=== PATIENT | male | born 1970 | race Caucasian/White ===

== ENCOUNTER 2020-04-09 00:46 | Outpatient (CLI) | payer OTHER, SELFPAY ==
[2020-04-09 18:19] LABS: SARS-CoV-2 RNA PCR Negative
== END 2020-04-09 00:47 | disposition home or self-care (01) ==
LOC: ANHCOVIDDT 00:46
PROVIDERS: PCP Family Medicine; Visit Provider Internal Medicine Gastroenterology
DX: Z01.812 Encounter for preprocedural laboratory examination (principal); Z20.828 Contact with and (suspected) exposure to other viral communicable diseases
CPT/HCPCS: 87635; C9803; U0003

== ENCOUNTER 2020-04-11 02:04 | Day surgery (SDC) | payer OTHER, SELFPAY ==
[2020-03-28 14:35] VITALS: BMI 32.5
[2020-04-11 08:45] VITALS: BP 140/91; PULSE 82; RESP 18; TEMP 36.6; O2SAT 99; BMI 31.6
[2020-04-11] MEDS: LACTATED RINGERS 1,000 ML 150 ML IV CONT (08:55)
--- NOTE | 2020-04-11 09:12 | WPDANESEPPF ---
Anes - Initial Pre Proc Eval Procedure: Operation Date: 04/11/20 09:00 Proposed Procedures p Screening Colonoscopy - Yasir Gonzalez MD Date/Time: 04/11/20 09:12 Surgeon: Yasir Gonzalez MD Pre Op Diagnosis: neoplasm screening Patient Data Age: 49 Gender: M Height: 6 ft Weight: 105.7 kg Last Vital Signs Temp 97.8 F 04/11/20 08:45 Pulse 82 04/11/20 08:45 Resp 18 04/11/20 08:45 BP 140/91 H 04/11/20 08:45 Pulse Ox 99 04/11/20 08:45 Allergies Allergy/AdvReac Type Severity Reaction Status Date / Time Penicillins Allergy Intermediate Hives Verified 04/11/20 08:43 lisinopril Allergy Mild cough Verified 04/11/20 08:43 Home Medications Medication Instructions Recorded Confirmed Type amlodipine 10 mg tablet 10 mg PO DAILY #30 tablet 03/10/20 04/11/20 Rx irbesartan 300 1 tablet PO DAILY #30 tablet 03/10/20 04/11/20 Rx mg-hydrochlorothiazide 12.5 mg tablet rosuvastatin 10 mg tablet 10 mg PO DAILY #30 tablet 03/10/20 04/11/20 Rx ibuprofen [Advil] 200 mg PO Q6H PRN 03/28/20 04/11/20 History peg 3350-electrolytes 236 240 ml PO Q10M #4000 ml 04/07/20 Rx gram-22.74 gram-6.74 gram-5.86 gram solution Patient hx anesthesia problems: none Family hx anesthesia problems: none PMFSH Past Medical History Medical History (Updated 02/11/20 @ 13:01 by Tesha Robison MD) Acquired polycythemia Adverse reaction to LULY inhibitor drug Benign essential HTN Continuous tobacco abuse Hyperlipidemia Family History Family History (Updated 10/03/18 @ 21:22 by DOCTOR UNKNOWN) Father Hypertension Family history of cardiovascular disease Patient's father is in good health Grandparent Malignant neoplasm of prostate Family history of heart disease in male family member before age 55 Mother Patient's mother is in good health Sibling Patient's sister is in good health Social History Social History (Updated 03/10/20 @ 15:55 by Bekah Del Valle) Smoking packs per day: 1 Smoking cigarettes per day: 20.0 Years smoked: 30 Smoking pack-years: 30.00 Smoking status: Current every day smoker Tobacco type: cigarettes Second hand tobacco smoke exposure: Yes Alcohol intake: never Substance use: never Substance use type: does not use Gender identity (if verbalized by the patient): Male Anes - Eval Final PreProcedure Day of Procedure 04/11/20 09:12 Patient weight: overweight Heart: regular rate and rhythm Lungs: clear to auscultation Airway: Mallampati scale class II Neurological: alert and oriented Last oral intake: >/= 8 hours ASA classification: III Emergent: no Anesthetic plan: proceed Anesthesia type and monitoring: general GIVS and standard monitoring Informed Consent: The patient's anesthetic plan and its attendant risks and benefits were discussed with the patient/family/POA. Questions were solicited and answers provided to the satisfaction of the patient/family/POA.
--- NOTE | 2020-04-11 09:19 | PM.HPGS ---
History of Present Illness History of Present Illness Consent: Risks, benefits, and alternatives have been discussed and questions answered. Patient agrees to proceed with procedure. Chief complaint: neoplasm screening Narrative: Robson Nunez is a 49 year old male here for first screening colonoscopy Review of Systems Constitutional: Constitutional: Denies headache(s) and Denies weakness Eyes: Eyes: Denies blurry vision ENT: Reports Normal hearing present, Denies headache(s) and Denies neck pain Cardiovascular: Cardiovascular: Denies chest pain and Denies dyspnea Respiratory: Respiratory: Denies dyspnea Gastrointestinal: Gastrointestinal: Reports no additional gastrointestinal complaints Genitourinary: Genitourinary: Denies dysuria Musculoskeletal: Musculoskeletal: Denies neck pain Integumentary/Breasts: Skin/Breast: Denies dry skin Neurologic: Reports Normal hearing present, Denies headache(s) and Denies weakness Psychiatric: Psychiatric: Denies anxiety Endocrine: Endocrine: Denies change in body appearance Hematologic/Lymphatic: Hematologic/Lymphatic: Denies easy bleeding Allergic/Immunologic: Allergic/Immunologic: Denies urticaria PMF Past Medical History Medical History (Updated 02/11/20 @ 13:01 by Tesha Robison MD) Acquired polycythemia Adverse reaction to LULY inhibitor drug Benign essential HTN Continuous tobacco abuse Hyperlipidemia Family History Family History (Updated 10/03/18 @ 21:22 by DOCTOR UNKNOWN) Father Hypertension Family history of cardiovascular disease Patient's father is in good health Grandparent Malignant neoplasm of prostate Family history of heart disease in male family member before age 55 Mother Patient's mother is in good health Sibling Patient's sister is in good health Social History Social History (Updated 03/10/20 @ 15:55 by Bekah Del Valle) Smoking packs per day: 1 Smoking cigarettes per day: 20.0 Years smoked: 30 Smoking pack-years: 30.00 Smoking status: Current every day smoker Tobacco type: cigarettes Second hand tobacco smoke exposure: Yes Alcohol intake: never Substance use: never Substance use type: does not use Gender identity (if verbalized by the patient): Male Meds Home Medications and Allergies Home Medications Medication Instructions Recorded Confirmed Type amlodipine 10 mg tablet 10 mg PO DAILY #30 tablet 03/10/20 04/11/20 Rx irbesartan 300 1 tablet PO DAILY #30 tablet 03/10/20 04/11/20 Rx mg-hydrochlorothiazide 12.5 mg tablet rosuvastatin 10 mg tablet 10 mg PO DAILY #30 tablet 03/10/20 04/11/20 Rx ibuprofen [Advil] 200 mg PO Q6H PRN 03/28/20 04/11/20 History peg 3350-electrolytes 236 240 ml PO Q10M #4000 ml 04/07/20 Rx gram-22.74 gram-6.74 gram-5.86 gram solution Allergies Allergy/AdvReac Type Severity Reaction Status Date / Time Penicillins Allergy Intermediate Hives Verified 04/11/20 08:43 lisinopril Allergy Mild cough Verified 04/11/20 08:43 Vital Signs Vital Signs - 24 hr 04/11/20 08:45 Temperature 97.8 F Pulse Rate 82 Respiratory Rate 18 Blood Pressure 140/91 H Pulse Oximetry 99 Exam Const: General: comfortable and no acute distress HENMT: General nose exam: Normal nares present Eyes: General: appearance normal, both eyes and all related structures Neck: Neck: no JVD Resp: Auscultation: clear to auscultation bilaterally Cardio: Rate: regular rate Rhythm: regular rhythm GI: Inspection: non-distended GI Palp: Yes Soft to palpation Skin: General skin exam: normal color Neuro: General: gait normal Speech: normal speech Extrem: General: normal to inspection Psych: Mental Status: mental status grossly normal Assessment and Plan Assessment and plan (1) Colon cancer screening: Code(s): Z12.11 - Encounter for screening for malignant neoplasm of colon Status: Acute Assessment and Plan: will proce
[2020-04-11 09:48] VITALS: BP 95/66; PULSE 81; RESP 17; O2SAT 96
[2020-04-11 09:58] VITALS: BP 104/67; PULSE 75; RESP 21; O2SAT 95
[2020-04-11 10:08] VITALS: BP 100/71; PULSE 63; RESP 18; O2SAT 96
== END 2020-04-11 10:21 | disposition home or self-care (01) ==
PROVIDERS: PCP Family Medicine; Visit Provider Internal Medicine Gastroenterology
PROC: 0DJD8ZZ Inspection of Lower Intestinal Tract, Via Natural or Artificial Opening Endoscopic (ICD-10-PCS; CPT 45378; principal; 2020-04-11 09:00)
DX: Z12.11 Encounter for screening for malignant neoplasm of colon (principal); I10 Essential (primary) hypertension; E78.5 Hyperlipidemia, unspecified; F17.210 Nicotine dependence, cigarettes, uncomplicated; K57.30 Diverticulosis of large intestine without perforation or abscess without bleeding; K64.8 Other hemorrhoids; D12.3 Benign neoplasm of transverse colon
CPT/HCPCS: 45385; 88305; J7120

== ENCOUNTER 2022-04-09 23:36 | Emergency (ER) | payer OTHER, SELFPAY ==
--- NOTE | ~2022-04-09 | XR_ITS ---
EXAMINATION: XR chest 2V DATE: 04/10/2022 00:42 INDICATION: Chest pain TECHNIQUE: PA and lateral views of the chest are obtained. COMPARISON: 10/24/2018 FINDINGS: The lungs are free of acute opacities. No pleural effusion or pneumothorax. The cardiomedia stinal silhouette is normal. There is moderate thoracic spondylosis. Surgical clips in the upper abdo men on the lateral view are likely from prior cholecystectomy. IMPRESSION: 1. No acute cardiopulmonary abnormality. Reviewed, dictated and finalized at location A.
--- NOTE | 2022-04-09 23:42 | ECG_ITS ---
Measurements Intervals [place] Rate: 75 P: 21 MA: 179 QRS: 5 QRSD: 101 T: 28 QT: 374 QTc: 419 Interpretive Statements SINUS RHYTHM POOR R-WAVE PROGRESSION ABNORMAL ECG NO PREVIOUS ECG AVAILABLE FOR COMPARISON Electronically Signed On 04-10-2022 10:05:16 CDT by Angel De La Cruz M.D.
[2022-04-09 23:44] VITALS: BP 172/103; PULSE 78; RESP 20; TEMP 36.3; O2SAT 98
[2022-04-10 02:21] LABS: Basophils Percent Auto 0.4 % (0.2-1.2); Eosinophils Absolute Auto 0.1 K/mm3 (0-0.3); Hematocrit 45.3 % (42.0-52.0); Hemoglobin 15.6 g/dL (14.0-18.0); Immature Granulocyte Absolute 0.03 K/mm3 (0.00-0.031); Immature Granulocyte Percent A 0.4 % (0-0.5); Lymphocytes Percent Auto 36.9 % (18.3-44.2); Mean Corpuscular HGB Conc 34.4 g/dl (32-36); Mean Corpuscular Hemoglobin 30.1 pg (26-34); Mean Corpuscular Volume 87.3 fl (80-100); Mean Platelet Volume 9.6 fl (7.4-10.4); Monocytes Absolute Auto 0.6 K/mm3 (0.1-0.6); Monocytes Percent Auto 7.9 % (2.6-8.5); Neutrophils Absolute Auto 4.3 K/mm3 (1.3-6.7); Neutrophils Percent Auto 53.4 % (45.5-73.1); Platelet Count Result 193 k/mm3 (150-375); Red Blood Count 5.19 M/mm3 (4.6-6.20); Red Cell Distribution Width 12.5 % (11.5-14.5); White Blood Count 8.1 K/mm3 (4.5-10.0)
[2022-04-10 02:28] LABS: Alanine Aminotransferase 18 U/L (6-50); Albumin Level 4.3 g/dL (3.5-5.1); Alkaline Phosphatase 62 U/L (38-126); Anion Gap 8 mmol/L (8-16); Aspartate Amino Transferase 22 U/L (17-59); Bilirubin,Total 0.4 mg/dL (0.2-1.3); Blood Urea Nitrogen 18 mg/dL (9-20); Carbon Dioxide 24 mmol/L (22-30); Chloride 104 mmol/L (98-107); Estimated CRCL calculation 97 ml/min; Estimated Glomerular Filt Rate > 60; Glucose 125 mg/dL (65-110); Lipase 197 U/L (23-300); Potassium 3.8 mmol/L (3.4-5.0); Sodium 136 mmol/L (137-145)
[2022-04-10 02:39] LABS: Troponin I < 0.012 ng/mL (0.000-0.034)
[2022-04-10 05:37] LABS: Prothrombin Time 12.6 Seconds (11.1-14.7)
[2022-04-10 05:38] LABS: Partial Thromboplastin Time 27.7 SECONDS (22.3-36.8)
[2022-04-10 05:51] LABS: Troponin I < 0.012 ng/mL (0.000-0.034)
--- NOTE | 2022-04-10 05:53 | ED.GENADULT ---
HPI - General Adult General Chief complaint: Chest Pain Stated complaint: chest pain, sob Time Seen by Provider: 04/10/22 05:00 History of Present Illness HPI narrative: Patient is a 51-year-old gentleman who presents emergency department with chief complaint of chest discomfort. Patient reports this evening he had an episode of midsternal chest discomfort patient reports that this been going on since around 10:00 this evening patient reports that it is improved while he is been in the emergency department. Patient reports that he has history of hypertension and smokes cigarettes. Related Data Home Medications Medication Instructions Recorded Confirmed ibuprofen 200 mg tablet (Advil) 200 mg PO Q6H PRN Pain 03/28/20 05/13/20 Allergies Allergy/AdvReac Type Severity Reaction Status Date / Time Penicillins Allergy Intermediate Hives Verified 04/09/22 23:46 lisinopril Allergy Mild cough Verified 04/09/22 23:46 Review of Systems Review of Systems: A 10 system review of systems was completed on the patient and is negative except for what is stated in the HPI. Nursing and ancillary documentation was reviewed. [facility] Past Medical History Medical History Acquired polycythemia Adverse reaction to LULY inhibitor drug Benign essential HTN Continuous tobacco abuse Hyperlipidemia Nicotine dependence, unspecified, uncomplicated Family History Family History Father Hypertension Family history of cardiovascular disease Patient's father is in good health Grandparent Malignant neoplasm of prostate Family history of heart disease in male family member before age 55 Mother Patient's mother is in good health Sibling Patient's sister is in good health Social History Social History Social History: Smoking packs per day: 0.5 Smoking cigarettes per day: 10.0 Years smoked: 30 Smoking pack-years: 15.00 Smoking status: Current every day smoker Tobacco type: cigarettes Second hand tobacco smoke exposure: Yes Alcohol intake: never Substance use: never Substance use type: does not use Gender identity (if verbalized by the patient): Male Sexual Orientation (if Verbalized by the Patient): Straight or Heterosexual Exam Narrative: GENERAL: Well-appearing, well-nourished, and in no acute distress. HEAD: Normocephalic, atraumatic. EYES: PERRLA and EOMI. ENT: Nares clear, no rhinorrhea or epistaxis. Mucous membranes moist. NECK: Supple. CHEST: Clear to auscultation. No respiratory distress. HEART: Regular rate and rhythm. No murmur heard. Normal peripheral pulses. ABDOMEN: Soft, nontender, nondistended, normal active bowel sounds. EXTREMITIES: Normal range of motion. No edema. SKIN: Warm, dry, no rash. NEURO: No focal deficits. Alert and oriented x3. PSYCH: Normal mood and affect. Course Course Emergency Course: EKG is sinus rhythm rate of [address] elevation or ST depression Vital Signs Vital signs: Vital Signs Temperature 36.3 C L 04/09/22 23:44 Pulse Rate 78 04/09/22 23:44 Respiratory Rate 20 04/09/22 23:44 Blood Pressure 172/103 H 04/09/22 23:44 Pulse Oximetry 98 04/09/22 23:44 Oxygen Delivery Room Air 04/09/22 23:44 Temperature 36.3 C L 04/09/22 23:44 Pulse Rate 78 04/09/22 23:44 Respiratory Rate 20 04/09/22 23:44 Blood Pressure 172/103 H 04/09/22 23:44 Pulse Oximetry 98 04/09/22 23:44 Oxygen Delivery Room Air 04/09/22 23:44 Medical Decision Making Vital Signs Vital Signs: Vital Signs Temperature 36.3 C L 04/09/22 23:44 Pulse Rate 78 04/09/22 23:44 Respiratory Rate 20 04/09/22 23:44 Blood Pressure 172/103 H 04/09/22 23:44 Pulse Oximetry 98 04/09/22 23:44 Oxygen Delivery Room Air 04/09/22 23:44 Temperature 36.3 C L 04/09
[2022-04-10 06:37] VITALS: BP 98/67; PULSE 72; RESP 16; O2SAT 98
== END 2022-04-10 06:38 | disposition home or self-care (01) ==
PROVIDERS: Emergency Medicine; Emergency Provider Emergency Medicine; PCP Family Medicine
DX: R07.89 Other chest pain (principal); I10 Essential (primary) hypertension; D75.1 Secondary polycythemia; E78.5 Hyperlipidemia, unspecified; F17.210 Nicotine dependence, cigarettes, uncomplicated; R94.31 Abnormal electrocardiogram [ECG] [EKG]
CPT/HCPCS: 36415; 71046; 80053; 83690; 84484; 85025; 85610; 85730; 93005; 99284

== ENCOUNTER 2022-04-26 12:42 | Emergency (ER) | payer OTHER, SELFPAY ==
[2022-04-26 12:52] VITALS: BP 168/118; PULSE 112; RESP 16; TEMP 36.9; O2SAT 99
--- NOTE | 2022-04-26 13:12 | ED.CHESTPAIN ---
HPI - Chest Pain General Chief Complaint: Chest Pain Stated Complaint: CHEST PAIN/SOB/BLURRED VISION/INFECTED TOOTH Time Seen by Provider: 04/26/22 12:44 Source: patient Mode of arrival: ambulatory Limitations: no limitations History of Present Illness HPI narrative: Mr. Nunez is a 51-year-old male patient presenting to the clinic today with complaints of chest pain, shortness of breath, blurred vision x1 day. He reports that his symptoms started yesterday. He stated that he started some amoxicillin that he was prescribed on for a dental infection. He reports that he is allergic to penicillin. Also states he is having some difficulty swallowing. Does have some swelling over the uvula and the throat. SPO2 is currently 99% on room air. EKG was performed and shows a possible lateral MN. Related Data Home Medications Medication Instructions Recorded Confirmed ibuprofen 200 mg tablet (Advil) 200 mg PO Q6H PRN Pain 03/28/20 05/13/20 Allergies Allergy/AdvReac Type Severity Reaction Status Date / Time Penicillins Allergy Intermediate Hives Verified 04/09/22 23:46 lisinopril Allergy Mild cough Verified 04/09/22 23:46 Review of Systems Review of Systems: Pertinent positives per HPI. Patient denies any fever, chills, rash, headache, visual changes, dizziness, cough, runny nose, sore throat, shortness of breath, chest pain, palpitations, nausea, vomiting, diarrhea, constipation, abdominal pain, or any urinary issues. [facility] Past Medical History Medical History Acquired polycythemia Adverse reaction to LULY inhibitor drug Benign essential HTN Continuous tobacco abuse Hyperlipidemia Nicotine dependence, unspecified, uncomplicated Family History Family History Father Hypertension Family history of cardiovascular disease Patient's father is in good health Grandparent Malignant neoplasm of prostate Family history of heart disease in male family member before age 55 Mother Patient's mother is in good health Sibling Patient's sister is in good health Social History Social History Social History: Smoking packs per day: 0.5 Smoking cigarettes per day: 10.0 Years smoked: 30 Smoking pack-years: 15.00 Smoking status: Current every day smoker Tobacco type: cigarettes Second hand tobacco smoke exposure: Yes Alcohol intake: never Substance use: never Substance use type: does not use Gender identity (if verbalized by the patient): Male Sexual Orientation (if Verbalized by the Patient): Straight or Heterosexual Comments At the time of my signature, I reviewed and agree with the nursing past medical, surgical, social, and family history. There is no relevant family history pertinent to the patient complaint. Exam Narrative: General: Well-developed, overweight, in no apparent distress Head: Normocephalic, atraumatic. General: Well-developed, well nourished, in no apparent distress Head: Normocephalic, atraumatic. Mouth: Oropharynx without lesions or masses, poor dentition, MMM. Uvula swelling noted Neck: Supple, trachea midline, no enlargement of anterior or posterior cervical nodes, no thyroid masses or goiter palpable. Cardio: Regular rate and rhythm, s1 and s2 normal, no murmur appreciated., Midsternal chest pain rating 5 out of 10-reports chest tightness and shortness of breath Resp: Clear to auscultation bilaterally, no rhonchi, rales, wheezing or rubs. Extremities: No deformity, no edema, no cyanosis, capillary refill less than 2 seconds, peripheral pulses palpable and strong. Integumentary: [place], warm, and dry, intact without lesion, no rashes. Course Course Emergency Course: Portions of this record may have been created with voice recognition software. Level of Care: Express
[2022-04-26 13:27] VITALS: BP 164/105; PULSE 107; RESP 16; TEMP 37; O2SAT 98
--- NOTE | 2022-04-26 15:18 | ECG_ITS ---
Measurements Intervals [place] Rate: 104 P: 22 WI: 166 QRS: 7 QRSD: 111 T: 5 QT: 346 QTc: 457 Interpretive Statements SINUS TACHYCARDIA DELAYED PRECORDIAL R/S TRANSITION CONSIDER HIGH LATERAL INFARCT, AGE INDETERMINATE BORDERLINE T WAVE ABNORMALITY- INFERIOR LEADS BASELINE ARTIFACT- II, III, AVF ABNORMAL ECG COMPARED TO ECG 04/09/2022 23:43:44 SINUS TACHYCARDIA NOW PRESENT Electronically Signed On 04-27-2022 7:52:07 CDT by Jake Singh D.O.
== END 2022-04-26 13:27 | disposition short-term general hospital (02) ==
PROVIDERS: Emergency Provider Nurse Practitioner Family; PCP Family Medicine
DX: R06.02 Shortness of breath (principal); K08.89 Other specified disorders of teeth and supporting structures; H53.8 Other visual disturbances; R07.9 Chest pain, unspecified; T78.40XA Allergy, unspecified, initial encounter; R13.10 Dysphagia, unspecified; R94.31 Abnormal electrocardiogram [ECG] [EKG]; F17.210 Nicotine dependence, cigarettes, uncomplicated; I10 Essential (primary) hypertension; E78.5 Hyperlipidemia, unspecified
CPT/HCPCS: 93005; 99215; G0463

== ENCOUNTER 2022-04-26 13:54 | Emergency (ER) | payer OTHER, SELFPAY ==
[2022-04-26] VITALS (13 sets, daily range): BP systolic 123–144; BP diastolic 78–98; PULSE 77–96; RESP 14–24; TEMP 36.3; O2SAT 93–100
--- NOTE | ~2022-04-26 | XR_ITS ---
EXAMINATION: XR chest 2V DATE: 04/26/2022 14:55 INDICATION: Chest pain. Shortness of breath. TECHNIQUE: Frontal and lateral views of the chest were obtained. COMPARISON: Chest 2 views 04/10/2022 FINDINGS: The chest demonstrates clear lungs without pneumonia, pleural effusion, or pneumothorax. Th e heart size is normal. IMPRESSION: 1. No acute cardiopulmonary disease. Reviewed, dictated and finalized at location A.
--- NOTE | ~2022-04-26 | CT_ITS ---
EXAMINATION: CT soft tissue neck w con DATE: 04/26/2022 17:30 INDICATION: TECHNIQUE: Computed tomography (CT) of the neck was performed with 75 mL Omnipaque-350 intravenous co ntrast. The dose-length product was 619.09 mGy-cm. COMPARISON: None FINDINGS: Multiple left thyroid nodules, measuring greater than 1.5 cm. The submandibular and parotid glands are symmetric. There is no cervical lymphadenopathy. There are no masses identified. Subdermal cys t in the left cheek. The superior mediastinum is unremarkable. The airway is unremarkable. Parap haryngeal and pre-glottic fat planes are preserved. The orbits are unremarkable. Visualized sinuse s and mastoid air cells are well aerated. Lungs are clear. There is cervical spondylosis. IMPRESSION: 1. No acute abnormality detected in the neck soft tissues. 2. Left thyroid nodules, recommend outpatient thyroid ultrasound for further characterization. Reviewed, dictated and finalized at location K. IMPRESSION: 1. No acute abnormality detected in the neck soft tissues. 2. Left thyroid nodules, recommend outpatient thyroid ultrasound for further ch aracterization.
--- NOTE | 2022-04-26 14:10 | ECG_ITS ---
Measurements Intervals [place] Rate: 106 P: -10 NV: 140 QRS: -18 QRSD: 102 T: 5 QT: 338 QTc: 450 Interpretive Statements SINUS TACHYCARDIA BORDERLINE R WAVE PROGRESSION, ANTERIOR LEADS MINIMAL Q WAVES- HIGH LATERAL LEADS BORDERLINE ST-T WAVE ABNORMALITY- INFERIOR LEADS BORDERLINE ECG COMPARED TO ECG 04/09/2022 23:43:44 SINUS TACHYCARDIA NOW PRESENT Electronically Signed On 04-26-2022 14:28:21 CDT by Jake Singh D.O.
[2022-04-26 15:35] LABS: Basophils Absolute Auto 0.1 K/mm3 (0.0-0.1); Basophils Percent Auto 0.6 % (0.2-1.2); Eosinophils Percent Auto 0.2 % (0-4.4); Hematocrit 45.9 % (42.0-52.0); Hemoglobin 15.7 g/dL (14.0-18.0); Immature Granulocyte Absolute 0.03 K/mm3 (0.00-0.031); Immature Granulocyte Percent A 0.3 % (0-0.5); Lymphocytes Absolute Auto 1.84 K/mm3 (0.9-3.2); Lymphocytes Percent Auto 21.1 % (18.3-44.2); Mean Corpuscular HGB Conc 34.2 g/dl (32-36); Mean Corpuscular Hemoglobin 29.8 pg (26-34); Mean Corpuscular Volume 87.1 fl (80-100); Monocytes Percent Auto 11.8 % (2.6-8.5); Neutrophils Absolute Auto 5.8 K/mm3 (1.3-6.7); Platelet Count Result 200 k/mm3 (150-375); Red Blood Count 5.27 M/mm3 (4.6-6.20); Red Cell Distribution Width 12.2 % (11.5-14.5); White Blood Count 8.7 K/mm3 (4.5-10.0)
[2022-04-26 15:46] LABS: Alanine Aminotransferase 21 U/L (6-50); Albumin Level 4.5 g/dL (3.5-5.1); Alkaline Phosphatase 74 U/L (38-126); Anion Gap 15 mmol/L (8-16); Aspartate Amino Transferase 21 U/L (17-59); Bilirubin,Total 0.5 mg/dL (0.2-1.3); Blood Urea Nitrogen 9 mg/dL (9-20); Calcium 9.2 mg/dL (8.4-10.2); Carbon Dioxide 23 mmol/L (22-30); Chloride 104 mmol/L (98-107); Estimated CRCL calculation 97 ml/min; Estimated Glomerular Filt Rate > 60; Glucose 92 mg/dL (65-110); Lipase 79 U/L (23-300); Potassium 4.2 mmol/L (3.4-5.0); Sodium 142 mmol/L (137-145)
[2022-04-26 15:48] LABS: Prothrombin Time 12.6 Seconds (11.1-14.7)
[2022-04-26 15:49] LABS: Partial Thromboplastin Time 26.5 SECONDS (22.3-36.8)
[2022-04-26 15:56] LABS: Troponin I < 0.012 ng/mL (0.000-0.034)
--- NOTE | 2022-04-26 16:45 | ED.CHESTPAIN ---
HPI - Chest Pain General Chief Complaint: Chest Pain Stated Complaint: CP, SOB Time Seen by Provider: 04/26/22 16:45 Source: patient Mode of arrival: EMS Limitations: no limitations History of Present Illness HPI narrative: The patient is a 51 yo male with a hx of HTN, HLD, presenting to the ER for evaluation of chest pain and dyspnea. Pt states that he began taking amoxicillin for a tooth ache 5 days ago, with chest discomfort beginning three days ago. Patient reports a central burning chest pain that is substernal in nature. Patient reports pain was accompanied by shortness of breath, but has been resolved over the past 2-3 hours. No current chest pain. Patient was seen at an urgent care this morning and sent here for evaluation. Patient also endorses difficulty swallowing the past 4 days. He had a low grade temperature last night at 100.9 and he endorses chills as well. Also is a current smoker, with a 40 pack year smoking history. Grandfather before ag 50 of heart attack; none in immediate family members. Related Data Home Medications Medication Instructions Recorded Confirmed ibuprofen 200 mg tablet (Advil) 200 mg PO Q6H PRN Pain 03/28/20 04/26/22 Allergies Allergy/AdvReac Type Severity Reaction Status Date / Time Penicillins Allergy Intermediate Hives Verified 04/26/22 15:22 lisinopril Allergy Mild cough Verified 04/26/22 15:22 Review of Systems Review of Systems: CONSTITUTIONAL: Denies fever, chills, or sweats. EYES: Denies visual changes, redness, or discharge. ENT: Denies rhinorrhea, congestion, reports no sore throat, reports some difficulty swallowing CARDIOVASCULAR: Reports chest pain, denies palpitations RESPIRATORY: Denies cough, no current dyspnea GASTROINTESTINAL: Denies abdominal pain, nausea, vomiting, or diarrhea. GENITOURINARY: Denies dysuria or hematuria. SKIN: Denies rash or itching. MUSCULOSKELETAL: Denies back pain, joint pain, or myalgia. NEUROLOGIC: Denies headache, numbness, or weakness. [facility] Past Medical History Medical History Acquired polycythemia Adverse reaction to LULY inhibitor drug Benign essential HTN Continuous tobacco abuse Hyperlipidemia Nicotine dependence, unspecified, uncomplicated Family History Family History Father Hypertension Family history of cardiovascular disease Patient's father is in good health Grandparent Malignant neoplasm of prostate Family history of heart disease in male family member before age 55 Mother Patient's mother is in good health Sibling Patient's sister is in good health Social History Social History Social History: Smoking packs per day: 0.5 Smoking cigarettes per day: 10.0 Years smoked: 30 Smoking pack-years: 15.00 Smoking status: Current every day smoker Tobacco type: cigarettes Second hand tobacco smoke exposure: Yes Alcohol intake: never Substance use: never Substance use type: does not use Gender identity (if verbalized by the patient): Male Sexual Orientation (if Verbalized by the Patient): Straight or Heterosexual Exam Narrative: GENERAL: Awake, alert, conversant HEAD: Normocephalic, atraumatic. EYES: PERRLA and EOMI. ENT: Nares clear, no rhinorrhea or epistaxis. Mucous membranes moist. NECK: Supple. CHEST: No respiratory distress, breathing even and non labored HEART: Regular rate, sinus rhythm ABDOMEN:Non distended, non tender EXTREMITIES: Normal range of motion. No edema. SKIN: Warm, dry, no rash. NEURO:No focal deficits. Alert and oriented x3 Course Vital Signs Vital signs: Vital Signs Temperature 36.3 C L 04/26/22 15:19 Pulse Rate 96 04/26/22 15:19 Respiratory Rate 18 04/26/22 15:19 Blood Pressure 144/97 H 04/26/22 15:19 Pulse Oximetry 96 04/26/22 15:19 Oxygen Delivery Room A
[2022-04-26 18:39] LABS: Troponin I < 0.012 ng/mL (0.000-0.034)
== END 2022-04-26 19:14 | disposition home or self-care (01) ==
PROVIDERS: Emergency Medicine; Emergency Provider Emergency Medicine; PCP Family Medicine
DX: R07.89 Other chest pain (principal); R00.0 Tachycardia, unspecified; E04.1 Nontoxic single thyroid nodule; F17.210 Nicotine dependence, cigarettes, uncomplicated; I10 Essential (primary) hypertension; E78.5 Hyperlipidemia, unspecified
CPT/HCPCS: 36415; 70491; 71046; 80053; 83690; 84484; 85025; 85610; 85730; 93005; 99284; Q9967